=== PATIENT | male | born 1965 | race Caucasian/White ===

== ENCOUNTER → 2018-08-13 | Outpatient (CLI) | payer BC ==
--- NOTE | 2018-08-13 15:27 | US ---
EXAMINATION TYPE: US thyroid st tissue head/neck DATE OF EXAM: 08/13/2018 COMPARISON: NONE CLINICAL HISTORY: R59.0 ENLARGED LYMPH NODES. GLAND SIZE: Right Lobe: 3.7 x 1.9 x 1.7 cm Overall Parenchyma: homogenous Left Lobe: 4.9 x 1.7 x 1.4 cm Overall Parenchyma: homogeneous Isthmus Thickness: 0.2 cm NODULES RIGHT: # of nodules measured on right: 0 LEFT: # of nodules measured on left: 0 ISTHMUS: # of nodules measured in the isthmus: Bilateral neck scanned, no evidence of lymphadenopathy. Patient pointed out palpable area in right neck, no mass or lymph node seen at this area, this appea rs to be at the area of the carotid bulb. IMPRESSION: Unremarkable study.
== END | disposition home or self-care (01) ==
LOC: RADUSWWP 14:57
PROVIDERS: ATTEND Family Medicine
DX: R59.0 Localized enlarged lymph nodes (principal)
CPT/HCPCS: 76536